=== PATIENT | female | born 1990 | race Caucasian/White ===

== ENCOUNTER 2017-09-15 19:34 | Emergency (ER) | payer MEDICARE, MEDICAID, SELFPAY ==
[2017-09-15 19:35] VITALS: BP 112/59; PULSE 88; RESP 14; TEMP 37.2; O2SAT 98; BMI 34.0
[2017-09-15 20:00] LABS: Absolute Lymphocyte Count 1.26 X10^3/ul (0.83-4.51); Absolute Neutrophil Count 7.3 X10^3/uL (2.0-7.7); Basophil# 0.03 X10^3/uL; Basophil% 0.3 % (0-1); Eosinophil# 0.21 X10^3/uL; Eosinophils% 2.3 % (0-5); Hematocrit 36.8 % (37-47); Hemoglobin 11.9 g/dl (12.0-15.0); Lymphocyte # 1.26 X10^3/ul (4.0); Lymphocyte % 13.5 % (19-41); Mean Corp Hgb Conc 32.3 g/gl (32-36); Mean Corpuscular Hgb 29.8 pg (27.0-32.0); Mean Corpuscular Volume 92.2 fL (81-99); Mean Platelet Vol. 7.8 fl (6.2-12.0); Monocyte# 0.51 X10^3/uL; Monocyte% 5.5 % (0-10); Neutrophil # 7.29 X10^3/uL (2.7-7.7); Neutrophil % 78.4 % (47-70); Platelet Count 452 K/mm3 (150-450); RBC Distribution Width CV 12.6 % (11.6-14.6); RBC Distribution Width SD 41.6 fl (35.1-43.9); Red Blood Count 3.99 M/mm3 (4.2-5.4); White Blood Count 9.3 K/mm3 (4.4-11.0)
[2017-09-15 20:01] LABS: POSITIVE COUNT NO; POSITIVE DIFFERENTIAL NO; POSITIVE MORPHOLOGY NO
[2017-09-15 20:09] LABS: Anion Gap 7 (5-15); BUN 13 mg/dL (7-18); BUN/Creat Ratio 14.6 RATIO (10-20); Calcium,Total 8.3 mg/dL (8.5-10.1); Chloride 108 mmol/L (98-107); Creatinine, Serum 0.89 mg/dL (0.55-1.02); EST Glomerular Filtration Rate 80 mL/min (>60); Est Glom Filt Rate - Afr Amer 96 mL/min (>60); Estimated Creatinine Clearance 83.93 ml/min; Glucose 101 mg/dL (74-106); Potassium 3.6 mmol/L (3.5-5.1); Sodium Level 140 mmol/L (136-145)
[2017-09-15 20:14] LABS: Pregnancy, Serum, hCG Quali. NEGATIVE Negative (0-9 Nonpreg)
[2017-09-15 21:41] VITALS: BP 103/76; PULSE 75; RESP 16; O2SAT 96
[2017-09-15] MEDS: Ketorolac 30 MG/ML Syringe IV (22:39)
[2017-09-15] MEDS: 0.9% Normal Saline 1,000 ML 1000 ML IV (22:39)
[2017-09-15] MEDS: Ondansetron 4 MG/2 ML Vial IV (22:39)
[2017-09-15 22:49] LABS: Bacteria 0 SEEN /hpf (None Seen); Mucous, Urine 0 SEEN /hpf (<or=2+); White Blood Cells 0 SEEN /hpf (0-5)
--- NOTE | 2017-09-15 22:49 | ED.VISSUMM ---
- ER Visit Summary Date of Service: 09/15/17 Chief Complaint: Abdominal pain History of Present Illness: The patient is a 27 F with no primary care physician. She reports that she has abdominal pain that began today. It is a diffuse sharp pain that is 10 out of 10 at worst and 8 out of 10 currently. Is worsened by nothing and relieved by nothing. States that she is vomited approximately 20 times. No blood or emesis. No diarrhea. She also complains of subjective fever and chills. Patient denies sick contacts. Has not been camping out of the country. No possible bad food exposure. Does not drink well water. No recent antibiotic use. Physical Examination: Vitals: Stable. Afebrile. General: Well-nourished and well-developed. Head: Normocephalic atraumatic. Neck: Supple, no lymphadenopathy. No JVD. Nontender. Cardiovascular: Regular rate and rhythm. No murmurs. Respiratory: No respiratory distress. Clear to auscultation bilaterally. Abdominal: Soft, mild diffuse tenderness to palpation, nondistended, normal bowel sounds. No guarding, rebound, or peritoneal signs. Back: Nontender. Extremities: Nontender, no edema. Skin: Normal color, no rash. Neurologic: Alert and oriented ?3. Cranial nerves II through XII are intact. Normal strength and sensation. Psych: Normal affect. Test Results: CBC is marked for an H&H of 11.9 and 36.8, segment neutrophils 78, leukocytes of 14. Chem-7 more for chloride 108 and calcium 8.3. Parents test is negative. UA is normal. Emergency Department Course and Treatment: Patient had an IV placed. She was given a liter of normal saline. She was given Toradol and Zofran IV. She is resting comfortably. She has not vomited while here. Treatment Plan: Patient will be discharged with Zofran. [facility] if not improving. Disposition: To home in improved and stable condition. Impression: 1. Abdominal pain. 2. Vomiting. This note was generated with [employer] dictation software. It may contain incorrect words, spelling, and punctuation that were not noted in review of the chart prior to signing ED Disposition - Plan for ED Patient: Chief Complaint: General Illness Instructions: ED Nausea Vomiting Prescriptions: Ondansetron [Zofran Odt] 4 mg PO Q8H PRN PRN #10 tablet PRN Reason: Nausea Dicyclomine HCl [Bentyl] 20 mg PO TIDAC #20 capsule Referrals: Rina Strange [NON-STAFF] - 1-2 Days if not improving
[2017-09-15 22:51] LABS: Color, Urine Yellow (Yellow); Glucose, Dipstick Normal (Normal); Ketone-Dipstick 15 mg/dl (Negative); Leukocyte Esterase-Dipstick Negative /ul (Negative); Nitrite-Dipstick Negative (Negative); Occult Blood-Urine 25 /ul (Negative); Protein-Dipstick 15 mg/dl (Negative); Specific Gravity, Urine 1.025 (1.002-1.030); Urine Bilirubin Dipstick Negative (Negative); Urine Clarity Sl. Cloudy (Clear); Urine Urobilinogen Normal (Normal)
--- NOTE | 2017-09-15 22:52 | ED.DCSUM_ITS ---
- ER Visit Summary Date of Service: 09/15/17 Chief Complaint: Abdominal pain History of Present Illness: The patient is a 27 F with no primary care physician. She reports that she has abdominal pain that began today. It is a diffuse sharp pain that is 10 out of 10 at worst and 8 out of 10 currently. Is worsened by nothing and relieved by nothing. States that she is vomited approximately 20 times. No blood or emesis. No diarrhea. She also complains of subjective fever and chills. Patient denies sick contacts. Has not been camping out of the country. No possible bad food exposure. Does not drink well water. No recent antibiotic use. Physical Examination: Vitals: Stable. Afebrile. General: Well-nourished and well-developed. Head: Normocephalic atraumatic. Neck: Supple, no lymphadenopathy. No JVD. Nontender. Cardiovascular: Regular rate and rhythm. No murmurs. Respiratory: No respiratory distress. Clear to auscultation bilaterally. Abdominal: Soft, mild diffuse tenderness to palpation, nondistended, normal bowel sounds. No guarding, rebound, or peritoneal signs. Back: Nontender. Extremities: Nontender, no edema. Skin: Normal color, no rash. Neurologic: Alert and oriented ?3. Cranial nerves II through XII are intact. Normal strength and sensation. Psych: Normal affect. Test Results: CBC is marked for an H&H of 11.9 and 36.8, segment neutrophils 78 , leukocytes of 14. Chem-7 more for chloride 108 and calcium 8.3. Parents test is negative. UA is normal. Emergency Department Course and Treatment: Patient had an IV placed. She was given a liter of normal saline. She was given Toradol and Zofran IV. She is resting comfortably. She has not vomited while here. Treatment Plan: Patient will be discharged with Zofran. [facility]2 days if not improving. Disposition: To home in improved and stable condition. Impression: 1. Abdominal pain. 2. Vomiting. This note was generated with [employer] dictation software. It may contain incorrect words, spelling, and punctuation that were not noted in review of the chart prior to signing ED Disposition - Plan for ED Patient: Chief Complaint: General Illness Instructions: ED Nausea Vomiting Prescriptions: Ondansetron [Zofran Odt] 4 mg PO Q8H PRN PRN #10 tablet PRN Reason: Nausea Dicyclomine HCl [Bentyl] 20 mg PO TIDAC #20 capsule Referrals: Rina Strange [NON-STAFF] - 1-2 Days if not improving
[2017-09-15 22:57] LABS: Red Blood Cells-Urine 0-5 SEEN /hpf (0-5); Squamous Epithelial Cells - UA 0-5 SEEN /hpf (5-10)
[2017-09-15 23:32] VITALS: BP 119/77; PULSE 76; RESP 17; O2SAT 97
== END 2017-09-15 23:33 | disposition home or self-care (01) ==
LOC: ED 22:50
PROVIDERS: Emergency Provider Emergency Medicine
DX: R10.9 Unspecified abdominal pain (principal); R11.2 Nausea with vomiting, unspecified; I35.0 Nonrheumatic aortic (valve) stenosis; Z72.0 Tobacco use
CPT/HCPCS: 80048; 81001; 84703; 85025; 96361; 96374; 96375; 99285; J7030; J2405